=== PATIENT | female | born 1980 | race Caucasian/White ===

== ENCOUNTER 2016-02-29 00:55 | Emergency (ER) | payer OTHER ==
[~2016-02-29] VITALS: Ht 172.7 cm; Wt 98.7 kg
[~2016-02-29 00:55] MED LIST: ANTIFUNGAL15 G1 TP; CLINDAMYCIN HC300 MG PO; DOCUSATE SODIU100 MG PO; ENDOCET 5-3251 EACH PO; GLYBURIDE2.5 MG PO; IBUPROFEN800 MG PO; KEFLEX500 MG PO; LEVAQUIN500 MG PO; LEVOTHYROXINE75 MCG PO; MOTRIN800 MG PO; PERCOCET 5/31 TABLET PO; PRENATAL VITAM1 EAC1 PO; PROAIR HFA8.5 GM IH; VENTOLIN HFA18 GM IH; VITAMIN D5000 UNIT PO; ZITHROMAX Z-PA250 MG PO; ZITHROMAX500 MG PO
[2016-02-29 01:23] LABS: HEMATOCRIT 41.4 % (36.0-46.0); MCH 31.4 PG (29.0-34.0); MCV 89.6 FL (83-99); MEAN PLAT.VOLUME 11.8 uM^3 (9.5-12.4); PLATELET COUNT 191 K/uL (156-360); RBC DIS.WIDTH-CV 12.2 % (11.8-14.6); RBC DIS.WIDTH-SD 39.5 % (39-53); RED BLOOD COUNT 4.62 M/uL (3.80-5.20); WHITE BLOOD COUNT 5.3 K/uL (4.1-10.2)
[2016-02-29 01:32] LABS: CHLORIDE 103 mEq/L (99-109); POTASSIUM 3.9 mEq/L (3.7-5.4); SODIUM 137 mEq/L (136-147)
[2016-02-29 01:34] LABS: GLUCOSE 172 mg/dL (70-99)
[2016-02-29 01:35] LABS: ANION GAP 9 MEQ/L (2-14)
[2016-02-29 01:36] LABS: TOTAL BILIRUBIN 0.4 mg/dL (0.0-1.0)
[2016-02-29 01:37] LABS: ALKALINE PHOSPHATASE 83 IU/L (3-129)
[2016-02-29 01:38] LABS: GFR ESTIMATE (CALCULATED) > 59 mL/min/
[2016-02-29 01:39] LABS: UREA NITROGEN (BUN) 7 mg/dL (9-23)
[2016-02-29 01:47] LABS: QUANTITATIVE HCG < 4.0 MIU/ML
[2016-02-29 03:32] LABS: LIPASE 19 U/L (1.0-51.0)
[2016-02-29 03:41] LABS: ADD MIUA? NO; BILIRUBIN NEGATIVE; BLOOD NEGATIVE; COLOR YELLOW ((YELLOW)); GLUCOSE (STRIP) NEGATIVE; KETONES NEGATIVE; LEUKOCYTES NEGATIVE; NITRITE NEGATIVE; PROTEIN (STRIP) NEGATIVE; SPECIFIC GRAVITY 1.016 (1.000-1.030); UCUL ADDED? NO
[2016-02-29 04:28] VITALS: BP 124/93
== END 2016-02-29 04:26 | disposition home or self-care (01) ==
LOC: RME 00:55 → EME 00:55 → RME 04:26
DX: R10.10 Upper abdominal pain, unspecified (principal); L30.9 Dermatitis, unspecified; I10 Essential (primary) hypertension; E11.9 Type 2 diabetes mellitus without complications; F17.200 Nicotine dependence, unspecified, uncomplicated; Z88.0 Allergy status to penicillin; Z71.6 Tobacco abuse counseling
CPT/HCPCS: 80053; 81003; 83690; 84702; 85027; 93005; 99281; 99284

== ENCOUNTER → 2016-04-12 | Outpatient (CLI) | payer OTHER ==
[~2016-04-12] VITALS: Ht 172.7 cm; Wt 99.8 kg
[~2016-04-12] MED LIST changes: +ZESTRIL5 MG PO
[2016-04-12 09:58] LABS: POINT-OF-CARE METER ID UU13113694
== END | disposition home or self-care (01) ==
LOC: AMB 09:20
PROVIDERS: Internal Medicine
DX: K29.70 Gastritis, unspecified, without bleeding (principal); K29.80 Duodenitis without bleeding; K31.7 Polyp of stomach and duodenum; R10.13 Epigastric pain; R19.7 Diarrhea, unspecified; F45.8 Other somatoform disorders; K64.8 Other hemorrhoids; G89.29 Other chronic pain; E11.9 Type 2 diabetes mellitus without complications; Z79.84 Long term (current) use of oral hypoglycemic drugs; E78.1 Pure hyperglyceridemia; E03.9 Hypothyroidism, unspecified; F17.200 Nicotine dependence, unspecified, uncomplicated; Z88.0 Allergy status to penicillin; Z83.3 Family history of diabetes mellitus; Z80.6 Family history of leukemia; Z80.3 Family history of malignant neoplasm of breast; Z80.41 Family history of malignant neoplasm of ovary
CPT/HCPCS: 82948; 88305; 88342 TC; J3010

== ENCOUNTER 2016-06-05 07:56 | Day surgery (SDC) | payer OTHER ==
[~2016-06-05] VITALS: Ht 172.7 cm; Wt 99.8 kg
[~2016-06-05 07:56] MED LIST changes: +GLUCOPHAGE500 MG PO; +ZESTRIL10 MG PO
[2016-06-05 08:57] LABS: POINT-OF-CARE METER ID UU14174212
[2016-06-05 09:10] VITALS: BP 119/69
[2016-06-05 12:37] LABS: POINT-OF-CARE METER ID UU13113675
[2016-06-05 14:40] VITALS: BP 117/85
== END 2016-06-05 14:50 | disposition home or self-care (01) ==
LOC: SDC 07:56 → 2SOUTH 12:07 → SDC 14:50 → EDSTATUS 15:11 → SDC 15:12
PROVIDERS: Neurological Surgery
DX: M47.892 Other spondylosis, cervical region (principal); M50.322 Other cervical disc degeneration at C5-C6 level; G89.29 Other chronic pain; G56.03 Carpal tunnel syndrome, bilateral upper limbs; E11.9 Type 2 diabetes mellitus without complications; E78.5 Hyperlipidemia, unspecified; F17.200 Nicotine dependence, unspecified, uncomplicated; Z83.3 Family history of diabetes mellitus; Z79.84 Long term (current) use of oral hypoglycemic drugs; Z88.0 Allergy status to penicillin
CPT/HCPCS: 72020; 76000; 82948; C1713; J0330; J1100; J1170; J2250; J2405; J2710; J3010; J3370

== ENCOUNTER 2016-11-22 17:12 | Emergency (ER) | payer OTHER ==
[~2016-11-22] VITALS: Ht 175.3 cm; Wt 87.3 kg
[2016-11-22] MEDS ORDERED: ROXICODONE5 MG PO (19:43)
[2016-11-22 20:04] VITALS: BP 129/89
== END 2016-11-22 20:04 | disposition home or self-care (01) ==
LOC: EME 17:12
DX: S10.93XA Contusion of unspecified part of neck, initial encounter (principal); W18.39XA Other fall on same level, initial encounter; Z98.1 Arthrodesis status; Z88.0 Allergy status to penicillin; Z91.040 Latex allergy status; F17.200 Nicotine dependence, unspecified, uncomplicated
CPT/HCPCS: 72040; 99281; 99284

== ENCOUNTER 2016-12-24 18:54 | Emergency (ER) | payer OTHER ==
[~2016-12-24] VITALS: Ht 170.2 cm; Wt 86.2 kg
[~2016-12-24 18:54] MED LIST changes: +FLEXERIL5 MG PO; +LIDODERM 5% P1 PATCH TD; +MOTRIN600 MG PO; +ROXICODONE5 MG PO
[2016-12-24] MEDS ORDERED: VENTOLIN HFA18 GM IH (21:55)
[2016-12-24] MEDS ORDERED: TESSALON PERLE100 MG PO (21:55)
[2016-12-24] MEDS ORDERED: PREDNISONE20 MG PO (21:55)
[2016-12-24 22:21] VITALS: BP 128/83
== END 2016-12-24 22:29 | disposition home or self-care (01) ==
LOC: EME 18:54
DX: J20.9 Acute bronchitis, unspecified (principal); H91.90 Unspecified hearing loss, unspecified ear; F17.200 Nicotine dependence, unspecified, uncomplicated; Z88.0 Allergy status to penicillin; Z91.040 Latex allergy status
CPT/HCPCS: 71020; 99281; 99283; J7512